=== PATIENT | male | born 1965 | race Caucasian/White ===

== ENCOUNTER 2024-08-02 18:12 | Emergency (ER) | payer BC, SELFPAY ==
--- OUTSIDE RECORDS SUMMARY | 2024-08-02 18:14 | XMS_ITS | Clinical Summary ---
Author Organization [employer] [facility] Address [address] [place] [id number] Care Team Providers Care Gear Setter Name Role Phone Pcp, No Primary Care Provider Unavailabl e Allergies Active Allergy Reactions Criticality Noted Date Comments Levofloxacin Hives Medium 05/03/2012 Medications No known medications Active Problems Problem Noted Date Diagnosed Date Empyema 05/24/2012 Encounters Date Type Department Care Team Description 08/02/2024 Nurse Triage [facility] Centralized Nurse Triage Clinic, No Pcp Or Hematuria from Last 3 Months Family History Medical History Relation Name Comments Alcohol/Drug Father MVA, , age 60. Alcohol/Drug Mother , cirrh osis, deceaed age 40. Anesthesia Problem No Family History Blood Disease No Family History Relation Name Status Comments Father Mother Social History Tobacco Use Types Packs/Day Years Used Date Smoking Tobacco: Every Day Cigarettes Smokeless Tobacco: Never Comments:1/2 PPD. Alcohol Use Standard Drinks/Week Comments Yes 0 (1 standard drink = 0.6 oz pure alcohol) weekends; up to 8 beers per weekend. 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 Gender Identity Not on file Sexual Orientation Not on file Occupation Industry Job Start Date Job End Date [employer] Not on file Not on file Not on file Obstetrics History Last Filed Vital Signs Vital Sign Reading Time Taken Comments Blood Pressure 115/72 05/31/2012 10:11 AM MAINTENANCE AND REPAIR WORKER Pulse 94 05/31/2012 10:11 AM MAINTENANCE AND REPAIR WORKER Temperature 36.7 C (98.1 F) 05/17/2012 6:43 PM MAINTENANCE AND REPAIR WORKER Respiratory Rate - - Oxygen Saturation 96% 05/17/2012 6:43 PM MAINTENANCE AND REPAIR WORKER Inhaled Oxygen Concentration - - Weight 86.6 kg (191 lb) 05/31/2012 10:11 AM MAINTENANCE AND REPAIR WORKER Height 189.2 cm (6' 2.5) 05/31/2012 10:11 AM CS T Body Mass Index 24.19 05/31/2012 10:11 AM MAINTENANCE AND REPAIR WORKER Plan of Treatment Health Maintenance Due Date Last Done Comments Tdap 07/28/1975 Depression screening for age 12+ 1976 HIV for age 15-65 07/28/1979 BMI (ht and wt on same day) for age 18+ 1982 Hepatitis C screening for age 18-79 1982 Tetanus booster 1984 Colonoscopy through age 75 2009 Lipids for age 45-75 2009 Pneumococcal series for age 50+ (1 of 1 - PCV) 015 Zoster (shingles) series for age 50+ (1 of 2) 07/28/19 15 COVID-19 vaccine series ( - 2023- season) Influenza Vaccine (Season Ended) 2024 RSV vaccine for adults or pr egnancy (1 - 1-dose 75+ series) 07/28/2039 Insurance Care Teams Gear Setter Relationship Specialty Start Date End Date Pcp, No . PCP - General 04/28/24
[2024-08-02 18:23] VITALS: BP 191/122; PULSE 90; RESP 20; TEMP 37.4; O2SAT 99; BMI 31.1
[2024-08-02 18:26] VITALS: BP 206/133
--- NOTE | 2024-08-02 18:32 | CRLHL7_ITS ---
For Patients: As a result of the Century Cures Act, medical imaging exams and procedure reports are released immediately into your electronic medical record. You may view this report before your referring provider. If you have questions, please contact your health care provider. INDICATION: Hematuria. TECHNIQUE: CT abdomen and pelvis acquired with 122 cc of Isovue 370 IV contrast. COMPARISON: None. FINDINGS: Lower chest: Mild dependent atelectasis in the lower lobes. Liver: Small cyst within the superior left hepatic lobe. Gallbladder and bile ducts: Unremarkable. No stones or inflammation. No biliary dilatation. Pancreas: Unremarkable. No mass or inflammation. Spleen: Scattered calcified granulomata. Adrenal glands: Unremarkable. No nodules. Kidneys: Small cyst within the left kidney. Too small to characterize ill-defined hypodense focus within the anterior interpolar region of the left kidney (2/57). No hydronephrosis or stone. GI tract: Unremarkable. Normal in caliber. No sign of mass or inflammation. Normal appendix. Vasculature: Normal caliber abdominal aorta with mild atherosclerotic calcification. Mesenteric arteries are patent. Lymph nodes: No lymphadenopathy. Peritoneum/Abdominal Wall: Unremarkable. No free air or significant free fluid. Pelvis: Prostatomegaly Bones: Multilevel degenerative changes of the spine. No acute findings. IMPRESSION: 1. No acute findings within the abdomen and pelvis. No urolith or evidence of obstructive uropathy. 2. Prostatomegaly. Please note that all CT scans at this facility use dose modulation, iterative reconstruction, and/or weight-based dosing when appropriate to reduce radiation dose to as low as reasonably achievable. Dictated by Yanick Villagomez MD @ 08/02/2024 7:56:08 PM (Electronically Signed)
[2024-08-02 18:45] LABS: Appearance Urine Cloudy (Clear); Bilirubin Urine Negative (Negative); Blood Urine 3+ (Negative); Glucose Urine Negative (Negative); Ketones Urine Negative (Negative); Leukocyte Esterase Urine Negative (Negative); Nitrite Urine Negative (Negative); Protein Urine 1+ (Negative); Specific Gravity Urine 1.025 (1.000-1.030); pH Urine 6.5 (5.0-8.5)
[2024-08-02 18:52] LABS: Color Urine Yellow (Yellow)
[2024-08-02 18:57] LABS: RBC Urine >100 (0-2); WBC Urine 0-2 (0-5)
[2024-08-02 18:59] LABS: Chloride* 104 mmol/L (96-114); Potassium* 3.9 mmol/L (3.6-5.1); Sodium* 141 mmol/L (135-149)
[2024-08-02 19:02] LABS: Blood Urea Nitrogen* 22 mg/dL (7-30); Calcium* 10.1 mg/dL (8.4-10.6); Carbon Dioxide* 25 mmol/L (20-32); Creatinine* 1.2 mg/dL (0.5-1.5); Est. Creatinine Clearance* 78.24; Estimated Glomerular Filt Rate 69 ml/min; Glucose* 113 mg/dL (60-115)
[2024-08-02 19:03] LABS: Anion Gap 12 mEq/L (7-15)
--- NOTE | 2024-08-02 19:07 | ED_ITS ---
HPI - General Adult General Date Seen: 08/02/24 Chief complaint: Urogenital Problems, Male Stated complaint: passing blooding in urine Time Seen by Provider: 08/02/24 18:22 History of Present Illness HPI narrative: Patient is a 59-year-old male who denies history of any other medical problems who says for the past 4 months he has noted intermittent blood in his urine. For the most part this has been small clots which he says are about the size of 1 of his eyelashes. He says he noticed this several times for a couple of months and then did not notice anything for 2 months and then over the past week has again noticed these very tiny blood clots. Over the past several days at the end of his stream he seen pinkish tinged blood and then in the past couple of days has seen blake blood at the end of his stream. He denies any pain. He had 1 instance of hematospermia. This has not recurred. He is very anxious about this now and is worried that he has cancer and is going to . He denies any fever or unexpected weight loss. He has elevated blood pressures here, denies a history of blood pressure. Does not go to the doctor frequently. He currently vapes, says he quit smoking a few years ago. Related Data Home Medications ?Medication ?Instructions ?Recorded ?Confirmed No Known Home Medications 08/02/24 08/02/24 Allergies Allergy/AdvReac Type Severity Reaction Status Date / Time No Known Allergies Allergy Mild Verified 08/02/24 19:14 Review of Systems Status of ROS: Reports: 10 or more systems reviewed and unremarkable except as noted in History and below PFSH [facility] Social History Smoking Status: Never smoker How often do you have a drink containing alcohol: never AUDIT-C Alcohol total score: 0 Non-prescribed substance use: denies use service: No Exam Narrative: Exam Narrative: Vital signs reviewed, markedly hypertensive. In general, alert, nontoxic med age male. Head: Normocephalic, atraumatic. Eyes: Sclera clear. Pupils equal and reactive. ENT: Mucous membranes moist. Neck: Supple without adenopathy. Heart: Regular rate and rhythm without murmur. Lungs: Clear. No increased work of breathing, crackles or wheezes. Abdomen: Soft, nontender to palpation. Extremities: Well perfused, pulses intact. No significant edema. Neurologic: Alert, conversant. Speech fluent, face symmetric. Moves all extremities equally. Skin: Warm, dry well perfused. Affect: Normal. Const: Vital Signs, click to edit/add: Vital Signs - 24 hr 08/02/24 18:23 08/02/24 18:26 Temperature 99.3 F Pulse Rate [Pulse Oximeter] 90 Respiratory Rate 20 Blood Pressure [Ri ght Upper Arm] 191/122 H 206/133 H Pulse Oximetry 99 Oxygen Delivery Me thod Room Air Course Course ED Course: I did urinalysis, this showed greater than 100 red cells no white cells. CT of the abdomen report reviewed, I reviewed the images as well, he seems to have likely a simple cyst in the left kidney, I did not see any concerning lesions. No concerning findings per Radiology. BMP normal. Findings discussed with the patient. I also discussed with him that his blood pressures considerably high. He does not have a primary care doctor. I gave him the phone numbers for Urology as well as primary care here. Have stressed the importance of primary care follow-up so that he can establish and get his blood pressure treated. I have also discussed that he will need to follow-up with urology regarding his hematuria as a definitive cause is not possible from the ER tonight. He verbalizes understanding of this. He can return any time for new or worsening symptoms. Vital Signs Vital signs: Initial Vital Signs Temperature 99.3 F 08/02/24 18:23 Temperature Source Temporal Artery Scan 08/02/24 18:23 Pulse Rate 90 08/02/24 18:23 Respiratory Rate 20 08/02/24 18:23 Blood Pressure 191/122 H 08/02/24 18:23 Blood Pressure Mean 145 H 08/02/24 18:23 Pulse Oximetry 99 08/02/24 18:23 Oxygen Delivery Method Room Air 08/02/24 18:23 Vital Signs Temperature 99.3 F 08/02/24 18:23 Pulse Rate 90 08/02/24 18:23 Respiratory Rate 20 08/02/24 18:23 Blood Pressure 191/122 H 08/02/24 18:23 Pulse Oximetry 99 08/02/24 18:23 Oxygen Delivery Method Room Air 08/02/24 18:23 Temperature 99.3 F 08/02/24 18:23 Pulse Rate 90 08/02/24 18:23 Respiratory Rate 20 08/02/24 18:23 Blood Pressure 206/133 H 08/02/24 18:26 Pulse Oximetry 99 08/02/24 18:23 Oxygen Delivery Method Room Air 08/02/24 18:23 Medical Decision Making Lab Data Lab results reviewed: Yes I reviewed the patient's lab results Labs: Lab Results 08/02/24 08/02/24 Range/Units 18:30 18:44 Sodium 141 (135-149) mmol/L Potassium 3.9 (3.6-5.1) mmol/L Chloride 104 (96-114) mmol/L Carbon Dioxide 25 (20-32) mmol/L Anion Gap 12 (7-15) mEq/L BUN 22 (7-30) mg/dL Creatinine 1.2 (0.5-1.5) mg/dL Estimated Creat Clear 78.24 Estimated GFR 69 ml/min Glucose 113 (60-115) mg/dL Calcium 10.1 (8.4-10.6) mg/dL Urine Color Yellow (Yellow) Urine Appearance Cloudy A (Clear) Urine pH 6.5 (5.0-8.5) Ur Specific [place] 1.025 (1.000-1.030) Urine Protein 1+ A (Negative) Urine Glucose (UA) Negative (Negative) Urine Ketones Negative (Negative) Urine Blood 3+ A (Negative) Urine Nitrite Negative (Negative) Urine Bilirubin Negative (Negative) Urine Urobilinogen 1.0 (0.2-1.0) Ur Leukocyte Esterase Negative (Negative) Urine RBC >100 A (0-2) Urine WBC 0-2 (0-5) Ur Squamous Epith Cells None (None-Few) Urine Bacteria None (None) Imaging Data CT scan - abdomen: Attestation: I have reviewed the pertinent imaging results. Radiologist's impression: [place] [id number] Diagnostic Imaging Report Patient: Nikhil Gong MR#: [id number] : 1965 Acct:[id number] Loc: ED Service Date: 08/02/[address]: Ordering Physician: Courtney Collins M.D. Date of Service: 08/02/24 Procedure(s): CT abdomen pelvis w con Accession Number(s): [id number] cc: Courtney Collins M.D.; Provider,Not a Local~ For Patients: As a result of the 21st Century Cures Act, medical imaging exams and procedure reports are released immediately into your electronic medical record. You may view this report before your referring provider. If you have questions, please contact your health care provider. INDICATION: Hematuria. TECHNIQUE: CT abdomen and pelvis acquired with 122 cc of Isovue 370 IV contrast. COMPARISON: None. FINDINGS: Lower chest: Mild dependent atelectasis in the lower lobes. Liver: Small cyst within the superior left hepatic lobe. Gallbladder and bile ducts: Unremarkable. No stones or inflammation. No biliary dilatation. Pancreas: Unremarkable. No mass or inflammation. Spleen: Scattered calcified granulomata. Adrenal glands: Unremarkable. No nodules. Kidneys: Small cyst within the left kidney. Too small to characterize ill-defined hypodense focus within the anterior interpolar region of the left kidney (2/57). No hydronephrosis or stone. GI tract: Unremarkable. Normal in caliber. No sign of mass or inflammation. Normal appendix. Vasculature: Normal caliber abdominal aorta with mild atherosclerotic calcification. Mesenteric arteries are patent. Lymph nodes: No lymphadenopathy. Peritoneum/Abdominal Wall: Unremarkable. No free air or significant free fluid. Pelvis: Prostatomegaly Bones: Multilevel degenerative changes of the spine. No acute findings. IMPRESSION: 1. No acute findings within the abdomen and pelvis. No urolith or evidence of obstructive uropathy. 2. Prostatomegaly. Please note that all CT scans at this facility use dose modulation, iterative reconstruction, and/or weight-based dosing when appropriate to reduce radiation dose to as low as reasonably achievable. Dictated by Yanick Villagomez MD @ 08/02/2024 7:56:08 PM Discharge Plan Discharge Clinical Impression: Painless hematuria Patient Disposition: Home, Self-Care Condition: Stable Instructions: Hematuria (ED) Additional Instructions: No clear cause is found tonight for your hematuria (blood in urine). This will require follow-up with the kidney/bladder specialist, urology. You will need to call and make that appointment. You can follow-up with [facility], . Your blood pressure is quite elevated today. You should follow-up with primary care because I think you need to be on medication for high blood pressure. If you do not have a primary care doctor, you can follow-up with our clinic, . Prescriptions: No Action No Known Home Medications Follow Up/Referrals: Provider,Not a Local [Primary Care Provider] - Stand Alone Forms: [facility] Info Instructions
--- OUTSIDE RECORDS SUMMARY | 2024-08-02 19:15 | XMS_ITS | Clinical Summary ---
Author Organization [employer] [facility] Address [address] [place] [id number] Care Team Providers Care Personnel Supervisor Name Role Phone Pcp, No Primary Care Provider Unavailabl e Allergies Active Allergy Reactions Criticality Noted Date Comments Levofloxacin Hives Medium 05/03/2012 Medications No known medications Active Problems Problem Noted Date Diagnosed Date Empyema 05/24/2012 Encounters Date Type Department Care Team Description 08/02/2024 Nurse Triage [facility] Centralized Nurse Triage Clinic, No Pcp [...] on file 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 Gender Identity Not on file Sexual Orientation Not on file Occupation Industry Job Start Date Job End Date [employer] Not on file Not on file Not on file Obstetrics History Last Filed Vital Signs Vital Sign Reading Time Taken Comments Blood Pressure 115/72 05/31/2012 10:11 AM PAID SEARCH MANAGER Pulse 94 05/31/2012 10:11 AM PAID SEARCH MANAGER Temperature 36.7 C (98.1 F) 05/17/2012 6:43 PM PAID SEARCH MANAGER Respiratory Rate - - Oxygen Saturation 96% 05/17/2012 6:43 PM PAID SEARCH MANAGER Inhaled Oxygen Concentration - - Weight 86.6 kg (191 lb) 05/31/2012 10:11 AM PAID SEARCH MANAGER Height 189.2 cm (6' 2.5) 05/31/2012 10:11 AM CS T Body Mass Index 24.19 05/31/2012 10:11 AM PAID SEARCH MANAGER Plan of Treatment Health Maintenance Due Date [...] 1-dose 75+ series) 07/28/2039 Insurance Care Teams Personnel Supervisor Relationship Specialty Start Date End Date Pcp, No . PCP - General 04/28/24
[2024-08-02 20:27] VITALS: BP 183/106; PULSE 77; RESP 18; O2SAT 94
== END 2024-08-02 20:26 | disposition home or self-care (01) ==
PROVIDERS: Emergency Provider Emergency Medicine
DX: R31.9 Hematuria, unspecified (principal)
CPT/HCPCS: 36415; 74177; 80048; 81001; 99284; 99285; Q9967